=== PATIENT | female | born 1995 | race African-American/Black ===

== ENCOUNTER 2021-09-30 07:25 | Emergency (ER) | payer MEDICAID ==
[~2021-09-30] VITALS: Ht 162.6 cm; Wt 89.0 kg
[2021-09-30 07:40] VITALS: BP 144/92
[2021-09-30] MEDS ORDERED: IBUPROFEN 400MG TABLET PO ONE (08:30)
[2021-09-30] MEDS ORDERED: LIDOCAINE HCL 1% 20ML VIAL (Pyxis) INJ INFIL ONE (08:30)
[2021-09-30] MEDS ORDERED: CEFTRIAXONE SODIUM 500 MG/VIAL IM ONE (08:30)
[2021-09-30 09:17] LABS: CLARITY URINE CLOUDY (CLEAR); COLOR URINE YELLOW (YELLOW); KETONES URINE TRACE (NEGATIVE); LEUKOCYTE ESTERASE URINE 3+ (NEGATIVE); NITRITE URINE NEGATIVE (NEGATIVE); OCCULT BLOOD URINE NEGATIVE (NEGATIVE); PROTEIN URINE NEGATIVE (NEGATIVE); SPECIFIC GRAVITY URINE 1.032 (1.005-1.030)
[2021-09-30 10:02] LABS: BASOPHILS % 0.3 % (0.0-2.0); EOSINOPHILS % 1.3 % (0.0-5.0); HEMATOCRIT. 37.6 % (36.0-48.0); HEMOGLOBIN. 12.8 g/dL (12.0-16.0); LYMPHOCYTES % 51.4 % (20.0-50.0); MEAN CORPUSCULAR HEMOGLOBIN 30.5 pg (28.0-32.0); MEAN CORPUSCULAR VOLUME 89.7 fL (81.0-99.0); MEAN PLATELET VOLUME 7.7 fl (7.4-10.4); MONOCYTES % 7.5 % (2.0-8.0); NEUTROPHILS % 39.5 % (40.0-76.0); PLATELET 289 x1000/uL (130-400); RED BLOOD CELL COUNT 4.19 mill/uL (4.2-5.4)
[2021-09-30 10:11] LABS: CHLORIDE 109 mEq/L (98-107)
[2021-09-30] MEDS ORDERED: IBUP-2028 MT (10:55)
[2021-09-30] MEDS ORDERED: DOXY100C5 MT (10:55)
[2021-09-30] MEDS ORDERED: NITR-87 MT (10:55)
[2021-09-30] MEDS ORDERED: METR-167 MT (11:34)
[2021-10-02 07:08] LABS: NEISSERIA GONORRHOEAE NAA Negative (Negative)
== END 2021-09-30 12:32 | disposition home or self-care (01) ==
LOC: ER 08:03
DX: N39.0 Urinary tract infection, site not specified (principal)
CPT/HCPCS: 36415; 76830; 76856; 80053; 81003; 81025; 85025; 87086; 87210; 87491; 87591; 96372; 99284; J0696; J3490

== ENCOUNTER 2022-03-24 02:49 | Emergency (ER) | payer MEDICAID ==
[~2022-03-24] VITALS: Ht 162.6 cm; Wt 100.0 kg
[~2022-03-24 02:49] MED LIST: DOXY100C5 MT; IBUP-2028 MT; METR-167 MT; NITR-87 MT
[2022-03-24 02:55] VITALS: BP 134/93
[2022-03-24] MEDS ORDERED: ACETAMINOPHEN 325MG TABLET PO STA (08:59)
[2022-03-24 09:57] LABS: CLARITY URINE CLOUDY (CLEAR); COLOR URINE YELLOW (YELLOW); KETONES URINE NEGATIVE (NEGATIVE); LEUKOCYTE ESTERASE URINE 3+ (NEGATIVE); NITRITE URINE NEGATIVE (NEGATIVE); OCCULT BLOOD URINE TRACE (NEGATIVE); PH URINE 5.5 (4.5-8.0); PROTEIN URINE NEGATIVE (NEGATIVE); SPECIFIC GRAVITY URINE 1.015 (1.005-1.030); UROBILINOGEN URINE 0.2 E.U./dL (0.2-1.0)
[2022-03-24] MEDS ORDERED: CEPH500C2 MT (10:30)
[2022-03-24] MEDS ORDERED: IBUP-2029 MT (10:30)
== END 2022-03-24 10:46 | disposition home or self-care (01) ==
LOC: ER 02:54
DX: N30.90 Cystitis, unspecified without hematuria (principal); R51.9 Headache, unspecified
CPT/HCPCS: 81003; 81025; 99284